=== PATIENT | female | born 1955 | race Caucasian/White ===

== ENCOUNTER 2016-10-30 11:30 | Outpatient (CLI) | payer OTHER | END 2016-10-30 23:59 | disposition home or self-care (01) | DX: N39.0 Urinary tract infection, site not specified (principal) ==

== ENCOUNTER 2016-12-26 10:55 | Outpatient (CLI) | payer OTHER ==
[2016-12-26 19:58] LABS: BASOPHILS % (AUTO) 0.9 %; EOSINOPHILS # (AUTO) 0.2 10^3/uL (0.0-0.7); EOSINOPHILS % (AUTO) 4.9 %; HCT - HEMATOCRIT 39.3 % (37.0-47.0); HGB - HEMOGLOBIN 12.6 g/dL (12.0-16.0); LYMPHOCYTES # (AUTO) 1.9 10^3/uL (1.5-3.5); LYMPHOCYTES % (AUTO) 43.2 %; MEAN CORPUSCULAR HEMOGLOBIN 29.5 pg (27.0-31.0); MEAN CORPUSCULAR HGB CONC 32.1 g/dL (32.0-36.0); MEAN CORPUSCULAR VOLUME 91.6 fL (81.0-99.0); MEAN PLATELET VOLUME 6.6 fL (7.9-10.8); MONOCYTES # (AUTO) 0.4 10^3/uL (0.0-1.0); MONOCYTES % (AUTO) 8.7 %; NEUTROPHILS # (AUTO) 1.9 10^3/uL (1.5-6.6); NEUTROPHILS % (AUTO) 42.3 %; NUCLEATED RED BLOOD CELLS AUTO 0.1 /100WBC; RED BLOOD COUNT 4.28 10^6/uL (4.20-5.40); RED CELL DISTRIBUTION WIDTH 13.6 % (12.0-15.0); UNCORRECTED WHITE BLOOD COUNT 4.5 x10^3/uL; WHITE BLOOD COUNT 4.5 x10^3/uL (4.8-10.8)
[2016-12-26 20:16] LABS: ALBUMIN/GLOBULIN RATIO 1.4 (1.0-2.2); BILIRUBIN,TOTAL 0.5 mg/dL (0.2-1.0); BUN - BLOOD UREA NITROGEN 22 mg/dL (6-20); CALCIUM 9.4 mg/dL (8.5-10.3); CARBON DIOXIDE - CO2 27 mmol/L (21-32); CHLORIDE 106 mmol/L (101-111); CHOL/HDL RATIO 2.6 (<4.4); CHOLESTEROL 217 mg/dL; CREATININE 0.8 mg/dL (0.4-1.0); GFR - MDRD 73 (>89); GLUCOSE 100 mg/dL (70-100); HDL CHOLESTEROL 83 mg/dL; LDL/HDL RATIO 1.4 (<4.4); POTASSIUM 4.2 mmol/L (3.5-5.0); SODIUM 140 mmol/L (135-145); TOTAL PROTEIN 7.8 g/dL (6.7-8.2); TRIGLYCERIDES 73 mg/dL; VLDL CHOLESTEROL 15 mg/dL
== END 2016-12-26 10:56 | disposition home or self-care (01) ==
LOC: LAB.WCP 10:55
PROVIDERS: ATTEND Physician Assistant Medical
DX: Z00.00 Encounter for general adult medical examination without abnormal findings (principal)
CPT/HCPCS: 36415; 80053; 80061; 84443; 85025

== ENCOUNTER 2017-01-09 10:27 | Outpatient (CLI) | payer OTHER ==
--- NOTE | 2017-01-10 11:41 | Mammography Report ---
DIGITAL SCREENING MAMMOGRAM: 01/09/2017 COMPARISON: 07/06/2015, 07/10/2013. TECHNIQUE: Bilateral digital CC and MLO projections. FINDINGS: There are scattered fibroglandular densities. There is no dominant mass, architectural di stortion, skin thickening, suspicious microcalcifications, or significant interval change. IMPRESSION: NEGATIVE. BIRADS CATEGORY 1. SUGGEST RETURN TO ROUTINE SCREENING IN 12 MONTHS. STANDARD QUALIFYING STATEMENTS 1. This examination was reviewed with the aid of Computer-Aided Detection (CAD). 2. A negative or benign imaging report should not delay biopsy if clinically suspicious findings are present. Consider surgical consultation if warranted. More than 5% of cancers are not identified by i maging. 3. Dense breasts may obscure an underlying neoplasm. JOB #: [id number] EXT JOB #:[id number]
== END 2017-01-09 10:28 | disposition home or self-care (01) ==
LOC: DI.N 10:27
PROVIDERS: ATTEND Physician Assistant Medical
DX: Z12.31 Encounter for screening mammogram for malignant neoplasm of breast (principal)
CPT/HCPCS: 77067

== ENCOUNTER → 2018-02-20 | Outpatient (CLI) | payer OTHER ==
[2018-02-20 18:43] LABS: BASOPHILS % (AUTO) 0.7 %; EOSINOPHILS # (AUTO) 0.2 10^3/uL (0.0-0.7); EOSINOPHILS % (AUTO) 3.8 %; HGB - HEMOGLOBIN 12.3 g/dL (12.0-16.0); LYMPHOCYTES # (AUTO) 1.9 10^3/uL (1.5-3.5); LYMPHOCYTES % (AUTO) 43.2 %; MEAN CORPUSCULAR HEMOGLOBIN 29.7 pg (27.0-31.0); MEAN CORPUSCULAR HGB CONC 32.5 g/dL (32.0-36.0); MEAN CORPUSCULAR VOLUME 91.2 fL (81.0-99.0); MEAN PLATELET VOLUME 7.1 fL (7.9-10.8); MONOCYTES # (AUTO) 0.3 10^3/uL (0.0-1.0); MONOCYTES % (AUTO) 7.2 %; NEUTROPHILS % (AUTO) 45.1 %; PLT - PLATELET COUNT 209 10^3/uL (130-450); RED BLOOD COUNT 4.14 10^6/uL (4.20-5.40); RED CELL DISTRIBUTION WIDTH 13.7 % (12.0-15.0); WHITE BLOOD COUNT 4.3 x10^3/uL (4.8-10.8)
[2018-02-20 19:05] LABS: ALBUMIN 4.1 g/dL (3.2-5.5); ALKALINE PHOSPHATASE 61 IU/L (42-121); ALT ALANINE AMINOTRANSFERASE 20 IU/L (10-60); AST ASPARTATE AMINOTRANSFERASE 25 IU/L (10-42); BILIRUBIN,TOTAL 0.8 mg/dL (0.2-1.0); BUN - BLOOD UREA NITROGEN 20 mg/dL (6-20); CALCIUM 8.9 mg/dL (8.5-10.3); CARBON DIOXIDE - CO2 28 mmol/L (21-32); CHLORIDE 103 mmol/L (101-111); CREATININE 0.8 mg/dL (0.4-1.0); GFR - MDRD 73 (>89); GLUCOSE 93 mg/dL (70-100); SODIUM 139 mmol/L (135-145); TOTAL PROTEIN 7.6 g/dL (6.7-8.2)
[2018-02-20 19:06] LABS: ALBUMIN/GLOBULIN RATIO 1.2 (1.0-2.2); CHOL/HDL RATIO 2.4 (<4.4); CHOLESTEROL 210 mg/dL; HDL CHOLESTEROL 87 mg/dL; LDL CHOLESTEROL,CALCULATED 105 mg/dL; LDL/HDL RATIO 1.2 (<4.4); VLDL CHOLESTEROL 18 mg/dL
[2018-02-21 11:36] LABS: HEPATITIS C ANTIBODY NON-REACTIVE (NON-REACTIVE)
== END ==
LOC: LAB.WCP 11:33
PROVIDERS: ATTEND Physician Assistant Medical
DX: Z00.00 Encounter for general adult medical examination without abnormal findings (principal); Z11.59 Encounter for screening for other viral diseases
CPT/HCPCS: 36415; 80053; 80061; 83721; 84443; 85025; 86803

== ENCOUNTER 2018-02-27 10:11 | Outpatient (CLI) | payer OTHER ==
--- NOTE | 2018-02-28 09:16 | Mammography Report ---
Reason: SCREENING MAMMO Procedure Date: 02/27/2018 Accession Number: [id number] / [id number] Procedure: MGN - Screening Mammo Dig Bilat CPT Code: FULL RESULT: EXAM: Screening Mammo Dig Bilat DATE: 02/27/2018 10:28 AM CLINICAL HISTORY: Routine screening. No personal or family history of breast cancer. History of benign surgical biopsy on the left. TECHNIQUE: Bilateral CC and MLO views were obtained. COMPARISON: 01/09/2017 through 07/10/2013 FINDINGS: The breasts demonstrate scattered fibroglandular densities bilaterally. There are stable postsurgical changes in the lateral left breast. There are no suspicious masses, calcifications or areas of distortion. IMPRESSION: Benign findings RECOMMENDATION: Routine annual screening unless otherwise clinically indicated. BI-RADS CATEGORY 2: Benign findings STANDARD QUALIFYING STATEMENTS: 1. This examination was reviewed with the aid of Computer-Aided Detection (CAD). 2. A negative or benign imaging report should not preclude biopsy if clinically suspicious findings are present. 3. Dense breasts may obscure an underlying neoplasm. 4. This examination was reviewed without the aid of 3D breast imaging (tomosynthesis).
== END 2018-02-27 10:12 | disposition home or self-care (01) ==
LOC: DI.N 10:11
DX: Z12.31 Encounter for screening mammogram for malignant neoplasm of breast (principal)
CPT/HCPCS: 77067

== ENCOUNTER 2018-07-01 10:26 | Observation (INO) | payer OTHER ==
[2018-07-01 11:00] LABS: BASOPHILS % (AUTO) 0.6 %; EOSINOPHILS % (AUTO) 0.2 %; HGB - HEMOGLOBIN 13.4 g/dL (12.0-16.0); LYMPHOCYTES # (AUTO) 1.2 10^3/uL (1.5-3.5); LYMPHOCYTES % (AUTO) 29.3 %; MEAN CORPUSCULAR HEMOGLOBIN 30.1 pg (27.0-31.0); MEAN CORPUSCULAR HGB CONC 33.5 g/dL (32.0-36.0); MEAN CORPUSCULAR VOLUME 89.7 fL (81.0-99.0); MEAN PLATELET VOLUME 6.8 fL (7.9-10.8); MONOCYTES # (AUTO) 0.5 10^3/uL (0.0-1.0); MONOCYTES % (AUTO) 13.4 %; NEUTROPHILS # (AUTO) 2.2 10^3/uL (1.5-6.6); NEUTROPHILS % (AUTO) 56.5 %; PLT - PLATELET COUNT 184 10^3/uL (130-450); RED BLOOD COUNT 4.47 10^6/uL (4.20-5.40); RED CELL DISTRIBUTION WIDTH 13.2 % (12.0-15.0); WHITE BLOOD COUNT 3.9 x10^3/uL (4.8-10.8)
[2018-07-01 11:14] LABS: ALBUMIN 4.2 g/dL (3.2-5.5); ALBUMIN/GLOBULIN RATIO 1.1 (1.0-2.2); BILIRUBIN,TOTAL 0.6 mg/dL (0.2-1.0); CALCIUM 9.5 mg/dL (8.5-10.3); CREATININE 1.2 mg/dL (0.4-1.0)
--- NOTE | 2018-07-01 11:24 | ED Physician Documentation ---
PD HPI SYNCOPE - Stated complaint Stated Complaint: SYNCOPE - Chief complaint Chief Complaint: Neuro - History obtained from History obtained from: Patient, Family - History of Present Illness Witnessed: Witnessed Timing - onset: Today Duration: Seconds Preceding symptoms: Diaphoresis, Light headed, Generalized weakness. No: H eadache, Chest pain, Palpitations, Dyspnea, Abdominal pain, Nausea / vomiting Associated symptoms: No: Seizure, Incontinant of urine, Incontinant of stool Contributing factors: Decreased PO intake (States is not been eating and drinking well for the past few days), Other (Was sitting, drinking coffee). No: Recent med change, Noxious stimulae, Emotional upset, Just stood up, Exertion Injury occurred: Fell. 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: Dextrose, Narcan, Fluids, O2, Cardiac meds, CPR, C spine precautions Similar symptoms before: Has not had sx before Recently seen: Not recently seen Review of Systems Ten Systems: 10 systems reviewed and negative Constitutional: denies: Fever, Chills Eyes: denies: Photophobia Ears: denies: Ear pain Nose: denies: Rhinorrhea / runny nose, Congestion Throat: denies: Sore throat Cardiac: denies: Chest pain / pressure, Palpitations, Calf pain Respiratory: denies: Dyspnea, Cough, Hemoptysis, Wheezing GI: denies: Abdominal Pain, Nausea, Vomiting, Diarrhea : denies: Dysuria, Frequency, Hesitancy Skin: denies: Rash Musculoskeletal: denies: Neck pain, Back pain Neurologic: denies: Headache PD PAST MEDICAL HISTORY - Past Medical History Past Medical History: Yes Cardiovascular: Hypertension - Past Surgical History Past Surgical History: No - Present Medications Home Medications: Ambulatory Orders Medication Instructions Recorded Confirmed Cholecalciferol [Vitamin D3] 5,000 unit PO DAILY 07/01/18 07/01/18 Glucosamine HCl 1,500 mg PO DAILY 07/01/18 07/01/18 Losartan Potassium 50 mg PO DAILY 07/01/18 07/01/18 Multivitamin [Multiple Vitamins] 1 each PO DAILY 07/01/18 07/01/18 - Allergies Allergies/Adverse Reactions: Allergies Allergy/AdvReac Type Severity Reaction Status Date / Time Sulfa (Sulfonamide Allergy Itching Verified 07/01/18 11:55 Antibiotics) - Living Situation Living Situation: reports: With family Living Arrangement: reports: At home - Social History Does the pt smoke?: No Smoking Status: Never smoker Does the pt drink ETOH?: No Does the pt have substance abuse?: No PD ED PE NORMAL - Vitals Vital signs reviewed: Yes - General General: Alert and oriented X 3, No acute distress, Well developed/nourished - HEENT HEENT: PERRL, Moist mucous membranes - Neck Neck: Supple, no meningeal sign - Cardiac Cardiac: RRR, No murmur, Strong equal pulses - Respiratory Respiratory: No respiratory distress, Clear bilaterally - Abdomen Abdomen: Soft, Non tender, Non distended - Derm Derm: Warm and dry - Extremities Extremities: No edema, No calf tenderness / cord - Neuro Neuro: Alert and oriented X 3 - Psych Psych: Normal mood, Normal affect Results - Vitals Vitals: Vital Signs - 24 hr 07/01/18 07/01/18 07/01/18 10:36 10:57 12:56 Temperature 36.0 C L Heart Rate 91 81 74 Respiratory 16 18 18 Rate Blood Pressure 110/72 118/91 H 104/76 O2 Saturation 100 99 99 Oxygen O2 Source Room air - EKG (time done) 1036 Rate: Rate (enter#) (87) Rhythm: NSR, Other (PVC) [place]: Normal Intervals: Normal AR QRS: Normal Ischemia: Non specific changes (flat t waves) Computer interpretation: Agree with computer - Labs Labs: Laboratory Tests 07/01/18 07/01/18 07/01/18 10:46 10:55 10:55 WBC 3.9 L RBC 4.47 Hgb 13.4 Hct 40.1 MCV 89.7 MCH 30.1 MCHC 33.5 RDW 13.2 Plt Count 184 MPV 6.8 L Neut # (Auto) 2.2 Lymph # (Auto) 1.2 L [place] # (Auto) 0.5 Eos # (Auto) 0.0 Baso # (Auto) 0.0 Absolute Nucleated RBC 0.00 Nucleated RBC % 0.0 Sodium 138 Potassium 3.7 Chloride 103 Carbon Dioxide 26 Anion Gap 9.0 BUN 18 Creatinine 1.2 H Estimated GFR (MDRD) 46 L Glucose 110 H POC Whole Bld Glucose 93 Calcium 9.5 Phosphorus Magnesium Total Bilirubin 0.6 AST 37 ALT 22 Alkaline Phosphatase 64 Troponin I Total Protein 8.0 Albumin 4.2 Globulin 3.8 Albumin/Globulin Ratio 1.1 Lipase 31 07/01/18 07/01/18 10:55 10:55 WBC RBC Hgb Hct MCV MCH MCHC RDW Plt Count MPV Neut # (Auto) Lymph # (Auto) [place] # (Auto) Eos # (Auto) Baso # (Auto) Absolute Nucleated RBC Nucleated RBC % Sodium Potassium Chloride Carbon Dioxide Anion Gap BUN Creatinine Estimated GFR (MDRD) Glucose POC Whole Bld Glucose Calcium Phosphorus 3.0 Magnesium 1.8 Total Bilirubin AST ALT Alkaline Phosphatase Troponin I 0.04 Total Protein Albumin Globulin Albumin/Globulin Ratio Lipase - Rads (name of study) Chest x-ray Radiology: Prelim report reviewed, EMP read contemporaneously, See rad report (No acute disease) PD MEDICAL DECISION MAKING - ED course Complexity details: reviewed results, re-evaluated patient, considered differential, d/w patient, d/w family ED course: 63-year-old female with syncope today. Unclear etiology. Her magnesium was borderline low and she was having frequent PVCs, therefore 2 g of magnesium was given. She did not have any significant prodrome, therefore I think it is reasonable to place her in observation for potential arrhythmia. Discussed the case with Dr. Calderon, hospitalist who accepts. This document was made in part using voice recognition software. While efforts are made to proofread this document, sound alike and grammatical errors may occur. Departure - Departure Disposition: ED Place in Observation Clinical Impression: Syncope Qualifiers: Syncope type: unspecified Qualified Code(s): R55 - Syncope and collapse Condition: Stable Discharge Date/Time: 07/01/18 14:09
[2018-07-01 11:35] LABS: MAGNESIUM 1.8 mg/dL (1.7-2.8)
[2018-07-01] MEDS ORDERED: MAGNESIUM SULFATE 2 GRAM 2 GM/50 ML BAG IV ONE (11:47)
--- NOTE | 2018-07-01 12:21 | XRAY Report ---
Reason: syncope Procedure Date: 07/01/2018 Accession Number: [id number] / [id number] Procedure: XR - Chest 1 View X-Ray CPT Code: 07788 FULL RESULT: EXAM: CHEST RADIOGRAPHY EXAM DATE: 07/01/2018 11:31 AM. CLINICAL HISTORY: Syncope. COMPARISON: None. TECHNIQUE: 1 view. FINDINGS: Lungs/Pleura: No focal opacities evident. No pleural effusion. No pneumothorax. Mediastinum: Within exam limitations, the cardiomediastinal contour is normal. Possible tortuosity and/or ectasia of descending thoracic aorta. Other: None. IMPRESSION: No radiographic evidence of acute cardiopulmonary disease. RADIA
[2018-07-01] MEDS ORDERED: ACETAMINOPHEN 325 MG TABLET PO PRN (13:14)
[2018-07-01] MEDS ORDERED: SODIUM CHLORIDE FLUSH 0.9% 10 ML SYRINGE IVP PRN (13:14)
[2018-07-01] MEDS ORDERED: PROCHLORPERAZINE 10 MG/2 ML VIAL IVP PRN (13:14)
[2018-07-01] MEDS: SODIUM CHLORIDE FLUSH 0.9% 10 ML SYRINGE IVP SCH (15:34)
[2018-07-01] MEDS: D5NS W/20 MEQ KCL 1,000 ML IV SCH (15:34)
--- NOTE | 2018-07-01 18:19 | HISTORY & PHYSICAL EXAMINATION ---
DATE OF SERVICE: 07/01/2018 Physician: Yaima Calderon MD HISTORY OF PRESENT ILLNESS: This is a 63-year-old female of descent who has a history of hypertension and takes Lisinopril. Otherwise, she has a negative past medical history. The patient states that 4 days ago, she climbed [employer] with her family, and on the descent, she started to get a headache, which she thought was from the high elevation[place] went to dinner, and she had a headache and no appetite, only took several spoonfuls of soup. The following day, she started to get chills and also got nausea and had no appetite for breakfast or lunch, and for dinner, only again tried soup and had vomiting. The following day, she was able to keep down tacos and felt slightly better but still had minimal intake during the day. She had been trying to force herself to return back to usual dietary habits but yesterday, still had no appetite and nausea but no vomiting and only ate ramen noodle soup. This morning when she was drinking her morning coffee, she felt suddenly hot, very dizzy and lightheaded, was sitting on a stool next to a kitchen counter, put her head down on the counter, but the next thing she remembers is waking up on the floor. She was able to rise up and does not think she hit anything as there was no pain on a hip or any other location. This has never happened to her before. Nobody else is sick in the family with any GI symptoms. She denies any diarrhea, has normal stool. She denied any chest pain, palpitations prior to her syncopal symptom. She has no cardiac history. PAST MEDICAL HISTORY: Hypertension. ALLERGIES: SULFA. MEDICATIONS: Lisinopril daily. REVIEW OF SYSTEMS: The patient did take her Lisinopril on all the days that she had a poor appetite and poor p.o. intake including this morning. Taking sips of water with her Lisinopril did not cause her to have nausea or vomiting. A comprehensive review of systems was performed, and the pertinent positives are listed, the rest are negative. SOCIAL HISTORY: The patient is a nonsmoker who never smoked. Drinks alcohol. No illicit drug use. She works as a cash controller, is standing for 7 hours a day, she states. She lives with her . FAMILY HISTORY: No inherited diseases. PHYSICAL EXAMINATION GENERAL: female who is in no distress. VITAL SIGNS: Blood pressure 126/86, heart rate in the 70s and 80s in sinus rhythm, afebrile, room air saturation 100%. HEENT: Unremarkable. NECK: Without JVD or carotid bruits. LUNGS: Clear. HEART: Sounds normal. No murmur. ABDOMEN: Soft, decreased bowel sounds, nontender. No organomegaly. EXTREMITIES: No clubbing, cyanosis, or edema. NEUROLOGIC: Intact. LABORATORIES: Normal electrolytes. BUN 18, creatinine 1.2. Magnesium 1.8. First troponin 0.04. CBC normal. No INR was done. Chest x-ray: unremarkable. EKG: Normal sinus rhythm, frequent PVCs, flat inferior T waves and in V4 through V6. There is no old EKG available for comparison. IMPRESSION/DIAGNOSES 1. Syncope. 2. Dehydration. 3. Gastroesophageal gastroenteritis type symptoms. 4. History of hypertension. 5. Premature ventricular contractions. 6. Abnormal EKG. PLAN 1. Place the patient in Observation status on telemetry. 2. Check orthostatic vital signs. 3. Cycle troponins x3. 4. Obtain an Echo to rule out structural heart disease. 5. Begin IV hydration as this appears to be the most likely reason for her syncope: dehydration and taking her blood pressure pills. 6. I agree with the magnesium dosing, which was already finished in the ER, to treat the borderline low magnesium, given her frequent PVCs. CODE STATUS: FULL CODE. DEEP VENOUS THROMBOSIS PROPHYLAXIS: SCDs. ATTESTATION: The patient is expected to be discharged or transferred to another facility within 96 hours: Yes. TD: 07/01/2018 17:29 MTDD
[2018-07-01] MEDS: FAMOTIDINE 20 MG TABLET PO SCH (20:31)
[2018-07-02] MEDS: D5NS W/20 MEQ KCL 1,000 ML IV SCH ×2 (01:28→12:06)
[2018-07-02] MEDS: SODIUM CHLORIDE FLUSH 0.9% 10 ML SYRINGE IVP SCH ×2 (01:31→09:24)
[2018-07-02 06:31] LABS: BASOPHILS % (AUTO) 0.4 %; EOSINOPHILS % (AUTO) 0.8 %; HGB - HEMOGLOBIN 11.9 g/dL (12.0-16.0); LYMPHOCYTES # (AUTO) 1.6 10^3/uL (1.5-3.5); MEAN CORPUSCULAR HEMOGLOBIN 29.4 pg (27.0-31.0); MEAN CORPUSCULAR HGB CONC 31.9 g/dL (32.0-36.0); MEAN CORPUSCULAR VOLUME 92.1 fL (81.0-99.0); MEAN PLATELET VOLUME 7.4 fL (7.9-10.8); MONOCYTES # (AUTO) 0.3 10^3/uL (0.0-1.0); MONOCYTES % (AUTO) 13.2 %; NEUTROPHILS % (AUTO) 21.6 %; PLT - PLATELET COUNT 154 10^3/uL (130-450); RED BLOOD COUNT 4.06 10^6/uL (4.20-5.40); RED CELL DISTRIBUTION WIDTH 13.7 % (12.0-15.0); WHITE BLOOD COUNT 2.6 x10^3/uL (4.8-10.8)
[2018-07-02 06:35] LABS: CREATININE 0.9 mg/dL (0.4-1.0); MAGNESIUM 1.8 mg/dL (1.7-2.8)
[2018-07-02 06:44] LABS: NEUTROPHILS # (AUTO) 0.6 10^3/uL (1.5-6.6)
[2018-07-02 08:54] LABS: PLATELET ESTIMATE, MANUAL NORMAL (130-450,000) (NORMAL); PLATELET MORPHOLOGY NORMAL APPEARANCE (NORMAL); RBC MORPHOLOGY (MULTIPLE) NORMAL APPEARANCE (NORMAL)
[2018-07-02] MEDS ORDERED: LOSARTAN 50 MG TABLET PO SCH (09:00)
[2018-07-02] MEDS ORDERED: POLYETHYLENE GLYCOL 3350 17 GM PACKET PO SCH (09:00)
[2018-07-02] MEDS: FAMOTIDINE 20 MG TABLET PO SCH (09:24)
--- NOTE | 2018-07-02 12:04 | Discharge Plan ---
Discharge Plan Disposition: 01 Home, Self Care Condition: Fair Diet: Soft Activity Restrictions: Activity as Tolerated Shower Restrictions: No Driving Restrictions: Yes (You may not drive a vehicle until cleared to resume driving by your PCP) Instruction Topics: Dehydration Rehydration Ch Additional Instructions or Follow Up instructions: You were in Observation here after having a fainting spell. It appears that fainting was due to dehydration. The dehydration was probably from poor oral intake for the previous 4 days, related to a viral syndrome or stomach bug. In fact, a blood test today showed that the presumed virus has suppressed your bone marrow production of cells. This may take a week to recover. You are being discharged and should recuperate further at home, advancing your diet as tolerated and increasing intake of fluids like broths, Gatorade, juices and water. Your blood pressure medication dose is currently excessive, because of being dehydrated. This morning you got half your usual dose of Losartan. Stay on this half dose. You should see your PCP for hospital follow-up, to have a CBC blood test, and to determine what Losartan dose to continue. You also need to be cleared to resume driving a vehicle. No Smoking: If you smoke, Please STOP! Call for help. Follow-up with: Marcella Ruiz PA-C [Primary Care Provider] -
[2018-07-02 15:56] VITALS: BP 130/90
--- NOTE | 2018-07-02 18:40 | PROVIDER PROGRESS NOTE ---
Assessment/Plan - Problem List (1) Syncope Qualifiers: Syncope type: unspecified Qualified Code(s): R55 - Syncope and collapse Assessment/Plan: It appears that her syncopal event was caused by dehydration on top of taking Lisinopril. No acute CT, no structural heart disease on Echo, no orthostasis (but has been getting iv hydration). She may be DCh but should stay home several days from work to rehydrate, an excuse from work was given. She should take 1/2 her usual dose of Losartan, til adjusted by PCP. Also, she was told not to drive, because of the syncopal event, until cleared to resume driving by her PCP. (2) Dehydration Assessment/Plan: She had 3-4 days with poor diet and fluid intake due to nausea and some vomiting. Her creat has improved with overnight iv hydration. (3) Gastroenteritis Assessment/Plan: The N/V have cleared, she was able to eat breakfast and lunch today. I suspect the chills and viral syndrome caused the drop in WBC, seen on this am's labs. This should improve in a week. She will need a CBC at the PCP appointment in the next few days, to assure the WBC is recovering. (4) Hx of essential hypertension Assessment/Plan: She will be DCh on half her usual Losartan dose. (5) PVCs (premature ventricular contractions) Assessment/Plan: She did have short runs of ventr. bigeminy and ventr. couplets seen on telemetry overnight. No evidence of CT or cardiomyopathy. Perhaps intrinsic and chronic PVCs, as she does not feel them. Perhaps worsened by her dehydration and she had a borderline low Mg yesterday. (6) Abnormal EKG Assessment/Plan: Diffusely flat T waves were noted on her 12-lead EKG at admission, but she has ruled out for CT and has a structurally normal heart on Echo done today. (7) Leukopenia Assessment/Plan: I suspect the chills and viral syndrome caused the drop in WBC, seen on this am's labs. This should improve in a week. She will need a CBC at the PCP appointment in the next few days, to assure the WBC is recovering. - Lab Result Fish Bone Diagrams: 07/02/18 06:04 07/02/18 06:04 - Other Other Results/Comments: Follow-up: with PCP in 3-7 days. Code status: Full Code. - Additional Planning My Orders: My Active Orders 07/02/18 15:27 Discharge [RC] .ONCE 07/02/18 15:28 Initiate Discharge Checklist [RC] .ONCE Subjective - Subjective Patient Reports: Feeling Better, Resting Comfortably, No Complaints Nursing Reports: Other (No nausea, No dizziness with stabding during orthostatic VS checks) Objective Vital Signs: Vital Signs - 24 hr 07/01/18 07/01/18 07/02/18 20:33 21:08 00:21 Temperature 37.3 C 37.9 C H 37.4 C Heart Rate [ 87 86 80 Monitoring electrodes] Heart Rate [ Sitting (After 1 Minute)] Heart Rate [ Standing (After 1 Minute)] Heart Rate [ Supine] Respiratory 18 18 18 Rate Blood Pressure 122/76 128/80 122/63 [Left Brachial artery] Blood Pressure [Right Brachial artery] Blood Pressure [Sitting (After 1 Minute)] Blood Pressure [Standing ( After 1 Minute) ] Blood Pressure [Supine] O2 Saturation 97 96 98 07/02/18 07/02/18 07/02/18 02:00 05:00 07:40 Temperature 36.9 C 37.1 C Heart Rate [ 72 77 Monitoring electrodes] Heart Rate [ 85 Sitting (After 1 Minute)] Heart Rate [ 98 Standing (After 1 Minute)] Heart Rate [ 83 Supine] Respiratory 16 18 Rate Blood Pressure 116/66 131/106 H [Left Brachial artery] Blood Pressure [Right Brachial artery] Blood Pressure 126/69 [Sitting (After 1 Minute)] Blood Pressure 116/66 [Standing ( After 1 Minute) ] Blood Pressure 128/64 [Supine] O2 Saturation 97 97 07/02/18 07/02/18 07/02/18 08:20 08:21 08:48 Temperature Heart Rate [ 77 Monitoring electrodes] Heart Rate [ 77 Sitting (After 1 Minute)] Heart Rate [ 89 Standing (After 1 Minute)] Heart Rate [ 77 Supine] Respiratory Rate Blood Pressure 126/86 H [Left Brachial artery] Blood Pressure [Right Brachial artery] Blood Pressure 126/86 H [Sitting (After 1 Minute)] Blood Pressure 136/88 H [Standing ( After 1 Minute) ] Blood Pressure 131/106 H [Supine] O2 Saturation 07/02/18 07/02/18 07/02/18 11:11 13:46 15:53 Temperature 37.0 C 37.1 C Heart Rate [ 74 71 Monitoring electrodes] Heart Rate [ 75 Sitting (After 1 Minute)] Heart Rate [ 90 Standing (After 1 Minute)] Heart Rate [ 83 Supine] Respiratory 18 18 Rate Blood Pressure [Left Brachial artery] Blood Pressure 145/93 H 130/90 H [Right Brachial artery] Blood Pressure 131/85 H [Sitting (After 1 Minute)] Blood Pressure 115/79 [Standing ( After 1 Minute) ] Blood Pressure 129/83 H [Supine] O2 Saturation 99 100 Oxygen O2 Source Room air I&O (Last 24 Hrs): Intake and Output Totals x24h 06/30/18 07/01/18 07/02/18 23:59 23:59 23:59 Intake Total 410 2900 Balance 410 2900 General: Alert, Oriented x3 HEENT: Mucous membr. moist/pink Neck: Supple, No JVD Neuro: Non Focal Cardiovascular: Regular rate, No murmurs Respiratory: No respiratory distress, Breath sounds nml Abdomen: Soft Extremities: No edema Comments/Notes: CONDITION AT DISCHARGE: Stable - Results Results: Laboratory Results WBC 2.6 x10^3/uL (4.8-10.8) L 07/02/18 06:04 RBC 4.06 10^6/uL (4.20-5.40) L 07/02/18 06:04 Hgb 11.9 g/dL (12.0-16.0) L 07/02/18 06:04 Hct 37.4 % (37.0-47.0) 07/02/18 06:04 MCV 92.1 fL (81.0-99.0) 07/02/18 06:04 MCH 29.4 pg (27.0-31.0) 07/02/18 06:04 MCHC 31.9 g/dL (32.0-36.0) L 07/02/18 06:04 RDW 13.7 % (12.0-15.0) 07/02/18 06:04 Plt Count 154 10^3/uL (130-450) 07/02/18 06:04 MPV 7.4 fL (7.9-10.8) L 07/02/18 06:04 Neut # (Auto) 0.6 10^3/uL (1.5-6.6) L 07/02/18 06:04 Lymph # (Auto) 1.6 10^3/uL (1.5-3.5) 07/02/18 06:04 [place] # (Auto) 0.3 10^3/uL (0.0-1.0) 07/02/18 06:04 Eos # (Auto) 0.0 10^3/uL (0.0-0.7) 07/02/18 06:04 Baso # (Auto) 0.0 10^3/uL (0.0-0.1) 07/02/18 06:04 Absolute Nucleated RBC 0.00 x10^3/uL 07/02/18 06:04 Nucleated RBC % 0.0 /100WBC 07/02/18 06:04 WBC Morphology (NORMAL) 07/02/18 06:04 Platelet Estimate NORMAL (130-450,000) (NORMAL) 07/02/18 06:04 Platelet Morphology NORMAL APPEARANCE (NORMAL) 07/02/18 06:04 RBC Morph Micro Appear NORMAL APPEARANCE (NORMAL) 07/02/18 06:04 Sodium 144 mmol/L (135-145) 07/02/18 06:04 Potassium 3.7 mmol/L (3.5-5.0) 07/02/18 06:04 Chloride 112 mmol/L (101-111) H 07/02/18 06:04 Carbon Dioxide 24 mmol/L (21-32) 07/02/18 06:04 Anion Gap 8.0 (6-13) 07/02/18 06:04 BUN 11 mg/dL (6-20) 07/02/18 06:04 Creatinine 0.9 mg/dL (0.4-1.0) 07/02/18 06:04 Estimated GFR (MDRD) 64 (>89) L 07/02/18 06:04 Glucose 109 mg/dL (70-100) H 07/02/18 06:04 POC Whole Bld Glucose 93 mg/dL (70 - 100) 07/01/18 10:46 Calcium 8.0 mg/dL (8.5-10.3) L 07/02/18 06:04 Phosphorus 3.0 mg/dL (2.5-4.6) 07/01/18 10:55 Magnesium 1.8 mg/dL (1.7-2.8) 07/02/18 06:04 Total Bilirubin 0.6 mg/dL (0.2-1.0) 07/01/18 10:55 AST 37 IU/L (10-42) 07/01/18 10:55 ALT 22 IU/L (10-60) 07/01/18 10:55 Alkaline Phosphatase 64 IU/L (42-121) 07/01/18 10:55 Troponin I < 0.04 ng/mL (<0.49) 07/02/18 00:25 Total Protein 8.0 g/dL (6.7-8.2) 07/01/18 10:55 Albumin 4.2 g/dL (3.2-5.5) 07/01/18 10:55 Globulin 3.8 g/dL (2.1-4.2) 07/01/18 10:55 Albumin/Globulin Ratio 1.1 (1.0-2.2) 07/01/18 10:55 Lipase 31 U/L (22-51) 07/01/18 10:55
== END 2018-07-02 15:30 | disposition home or self-care (01) ==
LOC: ED 10:26 → OBS 13:14
PROVIDERS: ADMIT Internal Medicine; ATTEND Internal Medicine
DX: R55 Syncope and collapse (principal); E86.0 Dehydration; A08.4 Viral intestinal infection, unspecified; D72.819 Decreased white blood cell count, unspecified; E83.42 Hypomagnesemia; I10 Essential (primary) hypertension; I49.3 Ventricular premature depolarization; R94.31 Abnormal electrocardiogram [ECG] [EKG]
CPT/HCPCS: 36415; 71045; 80048; 80053; 83690; 83735; 84100; 84484; 85025; 93005; 93306; 96365; 96366; 96367; 99284; 99285; A9270; G0378

== ENCOUNTER 2018-07-17 08:00 | Outpatient (CLI) | payer OTHER ==
[2018-07-17 14:11] LABS: BASOPHILS # (AUTO) 0.1 10^3/uL (0.0-0.1); BASOPHILS % (AUTO) 1.4 %; EOSINOPHILS # (AUTO) 0.2 10^3/uL (0.0-0.7); EOSINOPHILS % (AUTO) 3.9 %; HGB - HEMOGLOBIN 11.5 g/dL (12.0-16.0); LYMPHOCYTES # (AUTO) 1.5 10^3/uL (1.5-3.5); LYMPHOCYTES % (AUTO) 33.7 %; MEAN CORPUSCULAR HEMOGLOBIN 30.1 pg (27.0-31.0); MEAN CORPUSCULAR HGB CONC 33.5 g/dL (32.0-36.0); MEAN CORPUSCULAR VOLUME 89.7 fL (81.0-99.0); MEAN PLATELET VOLUME 6.8 fL (7.9-10.8); MONOCYTES # (AUTO) 0.6 10^3/uL (0.0-1.0); MONOCYTES % (AUTO) 12.6 %; NEUTROPHILS # (AUTO) 2.1 10^3/uL (1.5-6.6); NEUTROPHILS % (AUTO) 48.4 %; PLT - PLATELET COUNT 226 10^3/uL (130-450); RED BLOOD COUNT 3.83 10^6/uL (4.20-5.40); RED CELL DISTRIBUTION WIDTH 13.3 % (12.0-15.0); WHITE BLOOD COUNT 4.4 x10^3/uL (4.8-10.8)
== END 2018-07-18 23:59 | disposition home or self-care (01) ==
LOC: LAB.WCP 08:00
PROVIDERS: ATTEND Physician Assistant Medical
DX: R55 Syncope and collapse (principal)
CPT/HCPCS: 36415; 85025

== ENCOUNTER 2019-02-27 09:59 | Outpatient (CLI) | payer OTHER ==
--- NOTE | 2019-02-27 15:11 | XRAY Report ---
Reason: RIGHT KNEE PAIN Procedure Date: 02/27/2019 Accession Number: [id number] / [id number] Procedure: WCP - Knee 2 View RT CPT Code: Final Report FULL RESULT: EXAM: RIGHT KNEE RADIOGRAPHY EXAM DATE: 02/27/2019 09:59 AM. CLINICAL HISTORY: Knee pain. Patient hyperextended right knee while bowling and is now unable to flex the knee. COMPARISON: None. TECHNIQUE: 2 views. FINDINGS: Bones: There is question of an osseous fragment along the lateral tibial spine. Joints: There is a moderate joint effusion. There are mild tricompartmental degenerative changes. No dislocation is seen. Soft Tissues: Normal. No soft tissue swelling. IMPRESSION: Question osseous fragment near the lateral tibial spine, potential avulsion due to associated ligamentous/cartilage injury. RADIA
== END 2019-02-27 23:59 | disposition home or self-care (01) ==
LOC: DI.WCP 09:59
PROVIDERS: ATTEND Nurse Practitioner Family
DX: M25.561 Pain in right knee (principal)

== ENCOUNTER 2019-04-24 12:22 | Outpatient (CLI) | payer OTHER ==
--- NOTE | 2019-04-29 10:00 | Mammography Report ---
Reason: SCREENING MAMMO Procedure Date: 04/24/2019 Accession Number: [id number] / [id number] Procedure: MGN - Screening Mammo Dig Bilat CPT Code: Final Report FULL RESULT: EXAM: Screening Mammo Dig Bilat DATE: 04/24/2019 12:50 PM CLINICAL HISTORY: The patient is an asymptomatic 64-year-old female. No personal nor family history breast cancer. Prior benign left breast biopsy. TECHNIQUE: (B) - Bilateral CC and MLO views were obtained. COMPARISON: 02/27/2018, 01/09/2017, 07/06/2015 and 07/10/2013 PARENCHYMAL PATTERN: (A) - The breasts demonstrate scattered fibroglandular densities bilaterally. FINDINGS: The pattern of asymmetry is stable given positional variation. Postbiopsy changes again noted in the left breast. There are no suspicious masses, calcifications, or areas of distortion. IMPRESSION: RIGHT BREAST: Negative examination. BI-RADS category 1. LEFT BREAST: Benign examination BI-RADS category 2. RECOMMENDATION: (ANNUAL) - Recommend routine annual screening mammography. BI-RADS CATEGORY: BI-RADS category 2 STANDARD QUALIFYING STATEMENTS: 1. This examination was not reviewed with the aid of Computer-Aided Detection (CAD). 2. A negative or benign imaging report should not preclude biopsy if clinically suspicious findings are present. 3. Dense breasts may obscure an underlying neoplasm. ).
== END 2019-04-24 12:23 | disposition home or self-care (01) ==
LOC: DI.N 12:22
DX: Z12.31 Encounter for screening mammogram for malignant neoplasm of breast (principal)
CPT/HCPCS: 77067

== ENCOUNTER 2019-05-14 08:00 | Outpatient (CLI) | payer OTHER ==
[2019-05-14 12:10] LABS: BASOPHILS % (AUTO) 0.8 %; EOSINOPHILS # (AUTO) 0.2 10^3/uL (0.0-0.7); EOSINOPHILS % (AUTO) 3.9 %; HGB - HEMOGLOBIN 12.9 g/dL (12.0-16.0); LYMPHOCYTES # (AUTO) 2.3 10^3/uL (1.5-3.5); LYMPHOCYTES % (AUTO) 46.9 %; MEAN CORPUSCULAR HEMOGLOBIN 30.2 pg (27.0-31.0); MEAN CORPUSCULAR VOLUME 94.4 fL (81.0-99.0); MEAN PLATELET VOLUME 8.6 fL (7.9-10.8); MONOCYTES # (AUTO) 0.3 10^3/uL (0.0-1.0); MONOCYTES % (AUTO) 6.1 %; NEUTROPHILS # (AUTO) 2.1 10^3/uL (1.5-6.6); NEUTROPHILS % (AUTO) 42.1 %; PLT - PLATELET COUNT 209 10^3/uL (130-450); RED BLOOD COUNT 4.27 10^6/uL (4.20-5.40); RED CELL DISTRIBUTION WIDTH 12.4 % (12.0-15.0); WHITE BLOOD COUNT 4.9 x10^3/uL (4.8-10.8)
[2019-05-14 12:30] LABS: ALBUMIN 4.1 g/dL (3.2-5.5); ALBUMIN/GLOBULIN RATIO 1.2 (1.0-2.2); ALKALINE PHOSPHATASE 64 IU/L (42-121); ALT ALANINE AMINOTRANSFERASE 25 IU/L (10-60); AST ASPARTATE AMINOTRANSFERASE 27 IU/L (10-42); BILIRUBIN,TOTAL 0.7 mg/dL (0.2-1.0); BUN - BLOOD UREA NITROGEN 23 mg/dL (6-20); CALCIUM 8.8 mg/dL (8.5-10.3); CARBON DIOXIDE - CO2 27 mmol/L (21-32); CHLORIDE 104 mmol/L (101-111); CHOL/HDL RATIO 2.3 (<4.4); CHOLESTEROL 182 mg/dL; CREATININE 0.8 mg/dL (0.4-1.0); GFR - MDRD 73 (>89); GLUCOSE 96 mg/dL (70-100); HDL CHOLESTEROL 80 mg/dL; LDL CHOLESTEROL,CALCULATED 90 mg/dL; LDL/HDL RATIO 1.1 (<4.4); SODIUM 140 mmol/L (135-145); TOTAL PROTEIN 7.5 g/dL (6.7-8.2); VLDL CHOLESTEROL 12 mg/dL
== END 2019-05-14 23:59 | disposition home or self-care (01) ==
LOC: LAB.WCP 08:00
PROVIDERS: ATTEND Physician Assistant Medical
DX: Z00.00 Encounter for general adult medical examination without abnormal findings (principal)
CPT/HCPCS: 36415; 80053; 80061; 83721; 84443; 85025

== ENCOUNTER 2020-07-29 08:00 | Outpatient (CLI) | payer OTHER ==
[2020-07-29 18:21] LABS: BASOPHILS % (AUTO) 0.9 %; EOSINOPHILS # (AUTO) 0.2 10^3/uL (0.0-0.7); EOSINOPHILS % (AUTO) 4.5 %; HCT - HEMATOCRIT 40.1 % (37.0-47.0); HGB - HEMOGLOBIN 12.3 g/dL (12.0-16.0); LYMPHOCYTES # (AUTO) 1.9 10^3/uL (1.5-3.5); MEAN CORPUSCULAR HEMOGLOBIN 29.1 pg (27.0-31.0); MEAN CORPUSCULAR HGB CONC 30.7 g/dL (32.0-36.0); MEAN PLATELET VOLUME 9.2 fL (7.9-10.8); MONOCYTES # (AUTO) 0.4 10^3/uL (0.0-1.0); MONOCYTES % (AUTO) 9.2 %; NEUTROPHILS # (AUTO) 2.1 10^3/uL (1.5-6.6); NEUTROPHILS % (AUTO) 44.4 %; PLT - PLATELET COUNT 225 10^3/uL (130-450); RED BLOOD COUNT 4.22 10^6/uL (4.20-5.40); RED CELL DISTRIBUTION WIDTH 13.2 % (12.0-15.0); WHITE BLOOD COUNT 4.7 x10^3/uL (4.8-10.8)
[2020-07-29 19:02] LABS: ALBUMIN 4.4 g/dL (3.2-5.5); ALBUMIN/GLOBULIN RATIO 1.3 (1.0-2.2); ALKALINE PHOSPHATASE 60 IU/L (42-121); ALT ALANINE AMINOTRANSFERASE 17 IU/L (10-60); AST ASPARTATE AMINOTRANSFERASE 26 IU/L (10-42); BUN - BLOOD UREA NITROGEN 18 mg/dL (6-20); CALCIUM 9.1 mg/dL (8.5-10.3); CARBON DIOXIDE - CO2 26 mmol/L (21-32); CHLORIDE 103 mmol/L (101-111); CHOL/HDL RATIO 2.5 (<4.4); CHOLESTEROL 229 mg/dL; CREATININE 0.9 mg/dL (0.4-1.0); GFR - MDRD 63 (>89); GLUCOSE 92 mg/dL (70-100); HDL CHOLESTEROL 90 mg/dL; LDL CHOLESTEROL,CALCULATED 117 mg/dL; LDL/HDL RATIO 1.3 (<4.4); POTASSIUM 3.8 mmol/L (3.5-5.0); SODIUM 139 mmol/L (135-145); TOTAL PROTEIN 7.7 g/dL (6.7-8.2); TRIGLYCERIDES 109 mg/dL; VLDL CHOLESTEROL 22 mg/dL
[2020-07-29 19:10] LABS: THYROID STIMULATING HORMONE 2.29 uIU/mL (0.34-5.60)
[2020-07-29 19:27] LABS: BILIRUBIN,TOTAL 0.7 mg/dL (0.2-1.0)
== END 2020-07-29 23:59 | disposition home or self-care (01) ==
LOC: LAB.WCP 08:00
PROVIDERS: ATTEND Physician Assistant Medical
DX: Z00.00 Encounter for general adult medical examination without abnormal findings (principal)
CPT/HCPCS: 36415; 80053; 80061; 83721; 84443; 85025; 86900; 86901

== ENCOUNTER 2020-08-30 13:35 | Outpatient (CLI) | payer OTHER ==
--- NOTE | 2020-09-01 08:32 | Mammography Report ---
BILATERAL DIGITAL SCREENING MAMMOGRAM 3D/2D: 08/30/2020 CLINICAL: Routine screening. Comparison is made to exams dated: 04/24/2019 mammogram, 02/27/2018 mammogram, 01/09/2017 mammogram, 06/20 mammogram, and 07/10/2013 mammogram - [facility]. There are scattered fibrog landular elements in both breasts. There are benign post operative findings in the left breast. No significant masses, calcifications, or other findings are seen in either breast. There has been no significant interval change. IMPRESSION: BENIGN There is no mammographic evidence of malignancy. A 1 year screening mammogram is recommended. This exam was interpreted at Station ID: [id number]. NOTE: For mammograms, a report in lay terms will be sent to the patient. Approximately 15% of breast malignancies will not be visualized mammographically. In the management of a palpable breast mass, a negative mammogram must not discourage biopsy of a clinically suspicious lesion. Electronically Signed By: Dmitry Cristobal M.D. ddp/penrad:08/30/2020 14:23:19 ACR BI-RADS Category 2: Benign Finding(s) 3342F PARENCHYMAL PATTERN: (A) - The breast(s) demonstrate(s) scattered fibroglandular densities. BI-RADS CATEGORY: (2) - 2 RECOMMENDATION: (ANNUAL) - Recommend routine annual screening mammography. [id number] 1 year screening LATERALITY: (B)
== END 2020-08-30 13:36 | disposition home or self-care (01) ==
LOC: DI.N 13:35
DX: Z12.31 Encounter for screening mammogram for malignant neoplasm of breast (principal)

== ENCOUNTER 2020-12-02 08:00 | Outpatient (CLI) | payer OTHER | END 2020-12-02 23:59 | disposition home or self-care (01) | LOC: LAB.N 08:00 | PROVIDERS: ATTEND Nurse Practitioner | DX: R07.0 Pain in throat (principal); Z20.822 Contact with and (suspected) exposure to COVID-19 | CPT/HCPCS: 87070; 87077 ==

== ENCOUNTER 2021-08-18 09:11 | Outpatient (CLI) | payer OTHER ==
[2021-08-18 13:06] LABS: BASOPHILS % (AUTO) 0.8 %; EOSINOPHILS # (AUTO) 0.3 10^3/uL (0.0-0.7); EOSINOPHILS % (AUTO) 5.6 %; HCT - HEMATOCRIT 38.3 % (37.0-47.0); HGB - HEMOGLOBIN 12.1 g/dL (12.0-16.0); LYMPHOCYTES # (AUTO) 1.9 10^3/uL (1.5-3.5); LYMPHOCYTES % (AUTO) 38.1 %; MEAN CORPUSCULAR HEMOGLOBIN 29.4 pg (27.0-31.0); MEAN CORPUSCULAR HGB CONC 31.6 g/dL (32.0-36.0); MEAN PLATELET VOLUME 8.9 fL (7.9-10.8); MONOCYTES # (AUTO) 0.4 10^3/uL (0.0-1.0); MONOCYTES % (AUTO) 8.3 %; NEUTROPHILS # (AUTO) 2.4 10^3/uL (1.5-6.6); PLT - PLATELET COUNT 212 10^3/uL (130-450); RED BLOOD COUNT 4.12 10^6/uL (4.20-5.40); RED CELL DISTRIBUTION WIDTH 12.6 % (12.0-15.0)
[2021-08-18 13:08] LABS: ALBUMIN 4.1 g/dL (3.2-5.5); ALBUMIN/GLOBULIN RATIO 1.1 (1.0-2.2); ALKALINE PHOSPHATASE 64 IU/L (42-121); ALT ALANINE AMINOTRANSFERASE 17 IU/L (10-60); AST ASPARTATE AMINOTRANSFERASE 23 IU/L (10-42); BILIRUBIN,TOTAL 0.6 mg/dL (0.2-1.0); BUN - BLOOD UREA NITROGEN 14 mg/dL (6-20); CALCIUM 8.9 mg/dL (8.5-10.3); CARBON DIOXIDE - CO2 26 mmol/L (21-32); CHLORIDE 105 mmol/L (101-111); CHOL/HDL RATIO 2.5 (<4.4); CHOLESTEROL 237 mg/dL; GFR - MDRD 56 (>89); GLUCOSE 101 mg/dL (70-100); HDL CHOLESTEROL 95 mg/dL; LDL CHOLESTEROL,CALCULATED 124 mg/dL; LDL/HDL RATIO 1.3 (<4.4); POTASSIUM 4.1 mmol/L (3.5-5.0); SODIUM 140 mmol/L (135-145); TOTAL PROTEIN 7.7 g/dL (6.7-8.2); TRIGLYCERIDES 88 mg/dL; VLDL CHOLESTEROL 18 mg/dL
[2021-08-18 13:25] LABS: THYROID STIMULATING HORMONE 3.1 uIU/mL (0.34-5.60)
== END 2021-08-18 09:12 | disposition home or self-care (01) ==
LOC: LAB.N 09:11
PROVIDERS: ATTEND Physician Assistant Medical
DX: Z00.00 Encounter for general adult medical examination without abnormal findings (principal); I10 Essential (primary) hypertension
CPT/HCPCS: 36415; 80053; 80061; 83721; 84443; 85025

== ENCOUNTER 2021-12-20 09:05 | Day surgery (SDC) | payer OTHER ==
--- NOTE | 2021-12-20 09:46 | ANESTHESIA ---
Pre-Anesthesia VS, & Labs Height: 5 ft 2 in Weight (kg): 65.6 kg Body Mass Index: 26.4 BMI Classification: Overweight - NPO >8 hours <Gio Coyne - Last Filed: 12/20/21 09:46> - NPO >8 hours - Is Patient ?: No <Bessy Roy - Last Filed: 12/20/21 10:11> - Diagnosis screening (Gio Coyne) - Procedure colonoscopy (Gio Coyne) Vital Signs: Temp Pulse Resp BP Pulse Ox 36.1 C L 69 16 159/90 H 96 12/20/21 09:21 12/20/21 09:21 12/20/21 09:21 12/20/21 09:45 12/20/21 09:21 Home Medications and Allergies <Gio Coyne - Last Filed: 12/20/21 09:46> <Bessy Roy - Last Filed: 12/20/21 10:11> Cholecalciferol [Vitamin D3] 5,000 unit PO DAILY 07/01/18 Multivitamin [Multiple Vitamins] 1 each PO DAILY 07/01/18 glucosamine HCL [Glucosamine HCl] 1,500 mg PO DAILY 07/01/18 losartan daily (Bessy Roy) Allergies/Adverse Reactions: Allergies Allergy/AdvReac Type Severity Reaction Status Date / Time hexachlorophene Allergy Hives Verified 12/20/21 09:36 [From Phisohex] soy Allergy Hives Verified 12/20/21 09:36 Sulfa (Sulfonamide Allergy Itching Verified 12/20/21 09:36 Antibiotics) Anes History & Medical History - Medical History Cardiovascular: reports: Hypertension Pulmonary: reports: None Gastrointestinal: reports: None Urinary: reports: None Neuro: reports: None Musculoskeletal: reports: None Endocrine/Autoimmune: reports: None Blood Disorders: reports: None Skin: reports: None Smoking Status: Never smoker - Surgical History General: reports: Colonoscopy Orthopedic: reports: Amputation <Gio Coyne - Last Filed: 12/20/21 09:46> - Anesthetic History Anesthesia Complications: reports: No previous complications - Medical History Cardiovascular: reports: Hypertension Pulmonary: reports: None Gastrointestinal: reports: None Urinary: reports: None Neuro: reports: None Musculoskeletal: reports: None Endocrine/Autoimmune: reports: None Blood Disorders: reports: None Skin: reports: None Smoking Status: Never smoker Psychosocial: reports: No issues indicated History of Cancer?: No - Surgical History General: reports: Colonoscopy Orthopedic: reports: Amputation (left foot) <Bessy Roy - Last Filed: 12/20/21 10:11> Exam General: Alert, Oriented x3, Cooperative, No acute distress Dental: Partials Upper Mouth Openin Fingerbreadth Neck Mobility: Normal Mallampati classification: II Thyromental Distance: 4-6 cm Mental/Cognitive Status: Alert/Oriented X3, Normal for patient <Bessy Roy Last Filed: 12/20/21 10:11> Plan Anesthesia Type: General, Total IV Consent for Procedure(s) Verified and Reviewed: Yes Code Status: Attempt Resuscitation ASA classification: 2-Mild systemic disease Is this case an emergency?: No <Bessy Roy Last Filed: 12/20/21 10:11>
[2021-12-20] MEDS ORDERED: LACTATED RINGERS 1,000 ML IV ONE (09:58)
[2021-12-20] MEDS ORDERED: PROPOFOL 500 MG/50 ML 500 MG/50 ML VIAL ONE (10:01)
[2021-12-20] MEDS ORDERED: MIDAZOLAM 2 MG/2 ML VIAL ONE (10:28)
[2021-12-20] MEDS ORDERED: LACTATED RINGERS 700 ML IV ONE (11:07)
[2021-12-20 11:34] VITALS: BP 142/85
--- NOTE | 2021-12-20 12:03 | ANESTHESIA POST OP EVALUATION ---
Anesthesia Post Eval - Post Anesthesia Eval Vitals: Last Vital Signs Temp 36.3 C L 12/20/21 11:32 Pulse 79 12/20/21 11:32 Resp 20 12/20/21 11:32 BP 142/85 H 12/20/21 11:32 Pulse Ox 100 12/20/21 11:32 CV Function Including HR & BP: Stable Pain Control: Satisfactory Nausea & Vomiting: Negative Mental Status: Baseline Respiratory Status: Airway Patent Hydration Status: Satisfactory Anesthesia Complications: None
== END 2021-12-20 09:06 | disposition home or self-care (01) ==
LOC: SDS 09:05
PROVIDERS: ATTEND Surgery
DX: Z12.11 Encounter for screening for malignant neoplasm of colon (principal); K57.30 Diverticulosis of large intestine without perforation or abscess without bleeding; K64.8 Other hemorrhoids; I10 Essential (primary) hypertension

== ENCOUNTER 2022-01-01 14:35 | Outpatient (CLI) | payer OTHER ==
--- NOTE | 2022-01-02 10:21 | Mammography Report ---
BILATERAL DIGITAL SCREENING MAMMOGRAM 3D/2D: 01/01/2022 CLINICAL: Routine screening. Comparison is made to exams dated: 08/30/2020 mammogram, 04/24/2019 mammogram, 02/27/2018 mammogram, 12/22 mammogram, 07/06/2015 mammogram, and 07/10/2013 mammogram - [facility]. There are scattered areas of fibroglandular density in both breasts (category b / 25%-50% glandular t issue). There are benign post operative findings in the left breast. No significant masses, calcifications, or other findings are seen in either breast. There has been no significant interval change. IMPRESSION: BENIGN There is no mammographic evidence of malignancy. A 1 year screening mammogram is recommended. Based on the Tyrer Cuzick model (a risk assessment model) the patients lifetime risk is 4.7% and her 10 year risk is 2.2%. According to the ACR, ACS, and NCCN guidelines, an annual breast MRI exam consuelo g with mammogram is recommended if the patients lifetime risk is 20% or greater. This exam was interpreted at Station ID: [id number]. NOTE: For mammograms, a report in lay terms will be sent to the patient. Approximately 15% of breast malignancies will not be visualized mammographically. In the management of a palpable breast mass, a negative mammogram must not discourage biopsy of a clinically suspicious lesion. Electronically Signed By: Bartolo Warren [email or web address]/[email or web address]:01/01/2022 16:59:44 ACR BI-RADS Category 2: Benign Finding(s) 3342F PARENCHYMAL PATTERN: (A) - The breast(s) demonstrate(s) scattered fibroglandular densities. BI-RADS CATEGORY: (2) - 2 RECOMMENDATION: (ANNUAL) - Recommend routine annual screening mammography. [id number] 1 year screening LATERALITY: (B)
== END 2022-01-01 14:36 | disposition home or self-care (01) ==
LOC: DI.N 14:35
DX: Z12.31 Encounter for screening mammogram for malignant neoplasm of breast (principal)